=== PATIENT | male | born 1995 | race Caucasian/White ===

== ENCOUNTER 2016-12-28 02:39 | Emergency (ER) | payer BC ==
[2016-12-28] MEDS ORDERED: NS 0.9% 1000 ML* 1,000 ML IV ONE (03:20)
[2016-12-28 03:53] LABS: Hematocrit 45 % (42-52); Hemoglobin 15.6 g/dl (14.0-18.0); Mean Corpuscular HGB Conc 35 g/dl (31-36); Mean Corpuscular Hemoglobin 29 pg (27-31); Mean Corpuscular Volume 84 fL (80-94); Mean Platelet Volume 9 um3 (7.4-10.4); Red Blood Count 5.32 10^6/ul (4.0-5.4); Red Cell Distribution Width 12 % (10.5-15); White Blood Count 6.7 10^3/ul (3.5-10.8)
[2016-12-28 04:08] LABS: Albumin 4.9 g/dL (3.2-5.2); BUN/Creatinine Ratio 13.1 (8-20); Calcium 9.9 mg/dL (8.6-10.3); EGFR African American 145.6 (>60); EGFR Non-African American 113.2 (>60); Globulin 2.3 g/dL (2-4); Potassium 3.7 mmol/L (3.5-5.0); Total Bilirubin 0.6 mg/dL (0.2-1.0); Total Protein 7.2 g/dL (6.4-8.9)
--- NOTE | 2016-12-28 05:54 | ED ---
Yunior Rosas Rebecca, scribed for Chucky Veronica MD on 12/28/16 at 0350 . Abdominal Pain/Male - HPI Summary HPI Summary: Pt is a 21 y/o M who presents to ED c/o abdominal pain. Pain began yesterday morning, then improved and returned tonight at approximately 2000 after eating an unpeeled apple. Pain is currently mild, ranked 3/10 and characterized as discomfort and tightness. Sx aggravated and alleviated by nothing. Additionally c/o decreased urine output and abdominal distention. Denies fever, chills, nausea and back pain. Last BM was 2 days ago whereas he usually has them daily. No PSHx on the abdomen. FHx diverticulitis. Suspects that he had an incident of partial SBO last during which he had abdominal distention and pain for about 1 month. - History of Current Complaint Chief Complaint: EDAbdPain Stated Complaint: ABD PAIN Time Seen by Provider: 12/28/16 03:04 Hx Obtained From: Patient Onset/Duration: Still Present Timing: Intermittent Severity Currently: Mild Pain Intensity: 3 Pain Scale Used: 0-10 Numeric Character: Other: - Discomfort and tightness Aggravating Factor(s): Nothing Alleviating Factor(s): Nothing Associated Signs And Symptoms: Negative: Fever - Allergies/Home Medications Allergies/Adverse Reactions: Allergies Allergy/AdvReac Type Severity Reaction Status Date / Time injected iodine Allergy Hives Uncoded 12/28/16 02:49 PMH/Surg Hx/FS Hx/Imm Hx Endocrine/Hematology History: Denies: Hx Diabetes Cardiovascular History: Denies: Hx Coronary Artery Disease - Immunization History Date of Tetanus Vaccine: 2016 Date of Influenza Vaccine: 2016 Infectious Disease History: No Infectious Disease History: Denies: Traveled Outside the [place] in Last 30 Days - Family History Known Family History: Positive: Other - Diverticulitis - Social History Alcohol Use: Occasionally Substance Use Type: Reports: None Smoking Status (MU): Never Smoked Tobacco Review of Systems Negative: Fever, Chills Positive: Abdominal Pain, Other - Abdominal distention. Negative: Nausea Positive: other - Decreased urine output Positive: Other - NEGATIVE: back pain All Other Systems Reviewed And Are Negative: Yes Physical Exam - Summary Physical Exam Summary: The patient is well-nourished in no acute distress and in no acute pain. The skin is warm and dry and skin color reflects adequate perfusion. Good skin turgor. HEENT: The head is normocephalic and atraumatic. The pupils are equal and reactive. The conjunctivae are clear and without drainage. Nares are patent and without drainage. Mouth reveals moist mucous membranes and the throat is without erythema and exudate. The external ears are intact. The ear canals are patent and without drainage. The tympanic membranes are intact. Neck is supple with full range of motion and non-tender. Respiratory: Chest is non-tender. Lungs are clear to auscultation and breath sounds are symmetrical and equal. Cardiovascular: Hear is regular rate and rhythm. There is no murmur or rub auscultated. There is no peripheral edema and pulses are symmetrical and equal. Abdomen: The abdomen is soft with questionable LLQ pain and no mcburney's point tenderness. Musculoskeletal: There is no CVA tenderness. Extremities are non-tender with full range of motion. There is good capillary refill. There is no peripheral edema or calf tenderness elicited. Neurological: Patient is alert and oriented to person, place and time. The patient has symmetrical motor strength in all four extremities. No focal neurologist deficits. Psychiatric: The patient has an appropriate affect and does not exhibit any anxiety or depression. Triage Information Reviewed: Yes Vital Signs On Initial Exam: Initial Vitals BP 157/103 12/28/16 02:44 Vital Signs Reviewed: Yes - Joanna Coma Scale Coma Scale Total: 15 Diagnostics - Vital Signs Vital Signs Temp Pulse Resp BP Pulse Ox 12/28/16 02:46 101 99 12/28/16 02:45 97.2 F 97 16 157/103 99 12/28/16 02:44 157/103 - Laboratory Lab Results: Lab Results 12/28/16 12/28/16 12/28/16 Range/Units 03:40 03:40 03:40 WBC 6.7 (3.5-10.8) 10^3/ul RBC 5.32 (4.0-5.4) 10^6/ul Hgb 15.6 (14.0-18.0) g/dl Hct 45 (42-52) % MCV 84 (80-94) fL MCH 29 (27-31) pg MCHC 35 (31-36) g/dl RDW 12 (10.5-15) % Plt Count 193 (150-450) 10^3/ul MPV 9 (7.4-10.4) um3 Neut % (Auto) 50.9 (38-83) % Lymph % (Auto) 36.4 (25-47) % [place] % (Auto) 7.7 (1-9) % Eos % (Auto) 2.8 (0-6) % Baso % (Auto) 2.2 H (0-2) % Absolute Neuts (auto) 3.4 (1.5-7.7) 10^3/ul Absolute Lymphs (auto) 2.4 (1.0-4.8) 10^3/ul Absolute Monos (auto) 0.5 (0-0.8) 10^3/ul Absolute Eos (auto) 0.2 (0-0.6) 10^3/ul Absolute Basos (auto) 0.1 (0-0.2) 10^3/ul Absolute Nucleated RBC 0.01 10^3/ul Nucleated RBC % 0.1 Sodium 135 (133-145) mmol/L Potassium 3.7 (3.5-5.0) mmol/L Chloride 102 (101-111) mmol/L Carbon Dioxide 26 (22-32) mmol/L Anion Gap 7 (2-11) mmol/L BUN 11 (6-24) mg/dL Creatinine 0.84 (0.67-1.17) mg/dL Est GFR ( Amer) 145.6 (>60) Est GFR (Non-Af Amer) 113.2 (>60) BUN/Creatinine Ratio 13.1 (8-20) Glucose 97 (70-100) mg/dL Lactic Acid 0.7 (0.5-2.0) mmol/L Calcium 9.9 (8.6-10.3) mg/dL Total Bilirubin 0.60 (0.2-1.0) mg/dL AST 31 (13-39) U/L ALT 57 H (7-52) U/L Alkaline Phosphatase 84 (34-104) U/L C-Reactive Protein 1.00 (< 5.00) mg/L Total Protein 7.2 (6.4-8.9) g/dL Albumin 4.9 (3.2-5.2) g/dL Globulin 2.3 (2-4) g/dL Albumin/Globulin Ratio 2.1 (1-3) Amylase 61 (29-103) U/L Lipase 22 (11.0-82.0) U/L Result Diagrams: 12/28/16 03:40 12/28/16 03:40 Lab Statement: Any lab studies that have been ordered have been reviewed, and results considered in the medical decision making process. - CT CT Abd/Pel CT Interpretation: No Acute Changes - No localizing signs for acute pathology. ED physician reviewed this radiology report and agrees. CT Interpretation Completed By: Radiologist Re-Evaluation - Re-Evaluation First Eval Re-Evaluation Time: 05:45 Comment: Discussed CT results and D/C plan with the pt. Abdominal Pain Fem Course/Dx - Course Assessment/Plan: Pt is a 21 y/o M who presents to ED c/o abdominal pain. Pain began yesterday morning, then improved and returned tonight at approximately 2000 after eating an unpeeled apple. Pain is currently mild, ranked 3/10 and characterized as discomfort and tightness. Sx aggravated and alleviated by nothing. Additionally c/o decreased urine output and abdominal distention. Denies fever, chills, nausea and back pain. Last BM was 2 days ago whereas he usually has them daily. No PSHx on the abdomen. FHx diverticulitis. Suspects that he had an incident of partial SBO last semester during which he had abdominal distention and pain for about [address] Abd/pel reveals no acute findings. Blood work was done and within normal limits. In the ED course, pt received fluids. Pt will be D/C to home with Dx of abdominal pain and a follow up with his PCP. He understands and agrees. Elevated BP noted and advised to f/ u. - Diagnoses Differential Diagnosis/HQI/PQRI: Appendicitis, Bowel Obstruction, Constipation, Diverticulitis Provider Diagnoses: Abdominal pain Discharge - Discharge Plan Condition: Stable Disposition: HOME Patient Education Materials: Acute Abdominal Pain (ED) Referrals: [facility] [Primary Care Provider] - 3 Days The documentation as recorded by the Yunior cote Rebecca accurately reflects the service I personally performed and the decisions made by , Chucky Veronica MD.
[2016-12-28 06:15] VITALS: BP 123/83
--- NOTE | 2016-12-28 10:27 | RAD ---
INDICATION: LEFT lower quadrant abdominal pain. No bowel movement. Question obstruction or colitis. COMPARISON: No relevant prior exams available on the [facility] PACS for comparison. TECHNIQUE: Multidetector CT images were obtained from the lung bases to the ischial tuberosities. Evaluation of the viscera is limited without IV contrast. Multiplanar reformation. REPORT: Unremarkable visualized inferior thorax. The liver, gallbladder, pancreas, and spleen are unremarkable. No CT abnormality of the upper GI, small bowel, or infra cecal appendix best visualized on the coronal reformatted series. Enteric contrast extends to the descending colon. Moderate stool in the colon from the cecum through the mid descending colon. Negative for rectal distention with stool. Negative for ascites, free air, or significant hernias. Normal adrenal glands. Unremarkable kidneys. Negative for urolithiasis or hydronephrosis. Unremarkable nondilated ureters and distended urinary bladder. Unremarkable visualized male urogenital structures. Negative for lymphadenopathy. Normal diameter abdominal aorta and iliac arteries. Partially decompressed IVC suggesting lower volume state. Moderate anterior and middle column chronic appearing L3 compression fracture involving the superior endplate. Spinal fixation rods span from L2 through L4. IMPRESSION: 1. No acute or chronic CT abnormality of the alimentary tract. Normal appendix documented. 2. Nonspecific distention of the urinary bladder. Negative for hydronephrosis. 3. Negative for hernias.
== END 2016-12-28 06:17 | disposition home or self-care (01) ==
LOC: ED 02:39
DX: R10.32 Left lower quadrant pain (principal)
CPT/HCPCS: 36415; 74176; 80053; 82150; 83605; 83690; 85025; 86140; 96360; 99282